=== PATIENT | female | born 1965 | race Caucasian/White ===

== ENCOUNTER 2019-04-09 14:27 | Inpatient (IN) | payer OTHER ==
[~2019-04-09] VITALS: Ht 157.5 cm; Wt 90.7 kg
[2019-04-09] MEDS ORDERED: COZAAR25 MG (15:06)
[2019-04-09] MEDS ORDERED: METFORMIN HCL500 M3 (15:06)
[2019-04-09] MEDS ORDERED: NOVOLOG100 UNIT/1 (15:07)
--- NOTE | 2019-04-09 15:13 | NUR ---
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
[2019-04-14] MEDS ORDERED: TRAM1TAB98 PO (11:43)
== END 2019-04-14 12:18 | disposition home or self-care (01) | DRG 737 ==
LOC: ER 14:27 → SEC-K 21:09 → SURH 21:09 → SURG 21:40 → SURH 22:05
PROVIDERS: Obstetrics & Gynecology Gynecologic Oncology; ADMIT Internal Medicine
PROC: 0UT70ZZ Resection of Bilateral Fallopian Tubes, Open Approach (ICD-10-PCS; 2019-04-12)
PROC: 0UT20ZZ Resection of Bilateral Ovaries, Open Approach (ICD-10-PCS; 2019-04-12)
PROC: 07BC0ZX Excision of Pelvis Lymphatic, Open Approach, Diagnostic (ICD-10-PCS; 2019-04-12)
PROC: 0DBU0ZZ Excision of Omentum, Open Approach (ICD-10-PCS; 2019-04-12)
PROC: 0UT90ZZ Resection of Uterus, Open Approach (ICD-10-PCS; principal; 2019-04-12 13:00)
DX: C56.2 Malignant neoplasm of left ovary (principal); R18.0 Malignant ascites; E86.0 Dehydration; E87.8 Other disorders of electrolyte and fluid balance, not elsewhere classified; I10 Essential (primary) hypertension; N72 Inflammatory disease of cervix uteri; M79.7 Fibromyalgia; N85.01 Benign endometrial hyperplasia; K66.8 Other specified disorders of peritoneum; R59.0 Localized enlarged lymph nodes; E11.9 Type 2 diabetes mellitus without complications; Z79.4 Long term (current) use of insulin; Z85.3 Personal history of malignant neoplasm of breast; Z08 Encounter for follow-up examination after completed treatment for malignant neoplasm